=== PATIENT | female | born 1935 | race Caucasian/White ===

== ENCOUNTER 2019-03-16 13:03 | Emergency (ER) | payer OTHER ==
[~2019-03-16] VITALS: Ht 152.4 cm; Wt 59.0 kg
[2019-03-16] MEDS ORDERED: LEVOTHYROXINE25 MCG (13:47)
[2019-03-16] MEDS ORDERED: DIGOX125 MCG (13:48)
[2019-03-16] MEDS ORDERED: PLAVIX75 MG (13:48)
[2019-03-16] MEDS ORDERED: NAMENDA5 MG (13:48)
[2019-03-16] MEDS ORDERED: RAZADYNE ER16 MG (13:49)
[2019-03-16] MEDS ORDERED: NAMENDA10 MG (13:49)
== END 2019-03-16 21:37 | disposition home or self-care (01) ==
LOC: ER 13:03 → CPU-OBS 13:50 → ER 13:50
DX: R07.89 Other chest pain (principal)